=== PATIENT | male | born 1960 | race Caucasian/White ===

== ENCOUNTER 2021-04-26 09:56 | Inpatient (IN) ==
[2021-04-26] MEDS ORDERED: Ipratropium/Albuterol Neb 3 ML IH ONE (11:11)
[2021-04-26] MEDS ORDERED: Acetaminophen 325 MG TABLET PO ONE (11:12)
[2021-04-26] MEDS ORDERED: 0.9 % Sodium Chloride 1,000 ML IVC SCH ×2 (11:15→15:00)
[2021-04-26] MEDS ORDERED: 0.9 % Sodium Chloride 1,000 ML ONE (11:20)
[2021-04-26 11:41] LABS: Hematocrit 48.9 % (37.5-50.1); Hemoglobin 15.7 g/dL (12.9-16.9); Mean Corpuscular HGB Conc 32.1 g/dL (31.6-35.5); Mean Corpuscular Hemoglobin 29.3 pg (28.0-33.3); Mean Corpuscular Volume 91.4 fL (83.0-100.0); Mean Platelet Volume 10.9 fL (9.4-12.4); Neutrophils # 13.2 K/mcL (1.6-8.9); Platelet Count 272 K/mcL (140-400); Red Blood Count 5.35 M/mcL (4.19-5.50); Red Cell Distribution Width 13.8 % (11.5-14.5); White Blood Count 17.3 K/mcL (4.3-11.1)
[2021-04-26 12:09] LABS: Lymphocytes # 1.4 K/mcL (0.6-4.6); Monocytes # 2.8 K/mcL (0.0-1.3)
[2021-04-26 12:10] LABS: Platelet Estimate Normal (Normal)
[2021-04-26] MEDS ORDERED: 0.9 % Sodium Chloride 1,000 ML IVC ONE (12:18)
[2021-04-26 12:46] LABS: Albumin 3.9 g/dL (3.5-5.7); Albumin/Globulin Ratio 1.2 (1.1-2.2); Bilirubin,Total 1.6 mg/dL (0.3-1.0); Calcium 9.2 mg/dL (8.6-10.3); Globulin 3.3 g/dL (2.4-3.5); Potassium 3.7 mEq/L (3.5-5.1); Total Protein 7.2 g/dL (6.4-8.9); Troponin I 0.15 ng/mL (< 0.04)
[2021-04-26] MEDS ORDERED: cefTRIAXone 1,000 MG in 0.9 % Sodium Chloride Mini Bag 100 ML IVPB ONE (12:46)
[2021-04-26] MEDS ORDERED: Azithromycin 500 MG in 0.9 % Sodium Chloride 250 ML IVPB ONE (12:46)
[2021-04-26] MEDS ORDERED: cefTRIAXone 1,000 MG in Water for inj. (sterile) 10 ML IVP ONE (14:00)
[2021-04-26 14:23] LABS: Bacteria,Urine Few per hpf (None-Few); Bilirubin,Urine Negative (Negative); Blood,Urine Large (Negative); Clarity,Urine Turbid (Clear); Color,Urine Orange (Yellow); Glucose,Urine (UA) 50 mg/dL (Normal); Ketones,Urine Trace mg/dL (Negative); Leukocyte Esterase,Urine Negative (Negative); Mucus,Urine Few per lpf (None-Few); Nitrite,Urine Negative (Negative); Protein,Urine 200 mg/dL (Neg-Trace); RBC,Urine 0-3 per hpf (0-3); Specific Gravity,Urine 1.029 (1.010-1.025); Squamous Epithelial Cell,Urine Few per hpf (None-Few)
[2021-04-26] MEDS ORDERED: Naloxone 0.4 MG/ML INJ IVP PRN (14:45)
[2021-04-26] MEDS ORDERED: Ondansetron 4 MG/2 ML VIAL IVP PRN (14:45)
[2021-04-26] MEDS ORDERED: GuaiFENesin Liq 200 MG/10 ML UDC PO PRN (14:46)
[2021-04-26] MEDS ORDERED: Perflutren Lipid Microsphere 1.3 ML in 0.9 % Sodium Chloride 8.7 ML IVP PRN (14:59)
[2021-04-26] MEDS: Ipratropium/Albuterol Neb 3 ML IH SCH ×3 (15:54→23:40)
[2021-04-26] MEDS: 0.9 % Sodium Chloride 1,000 ML IVC SCH ×2 (17:02→23:00)
[2021-04-26 17:39] LABS: Troponin I 0.05 ng/mL (< 0.04)
[2021-04-26] MEDS ORDERED: *HR* Heparin 5,000 UNIT/ML VIAL SQ SCH (18:00)
[2021-04-26 18:25] LABS: Estimated Average Glucose 114 mg/dl; Hemoglobin A1C 5.6 %
[2021-04-26] MEDS: Budesonide/Formoterol 160/4.5 1 PUFF INH IH SCH (20:05)
[2021-04-26] MEDS: MethylPREDNISolone 40 MG/ML VIAL IVP SCH (21:11)
[2021-04-26] MEDS: Nicotine 14 MG PATCH.TD24 TD SCH (21:12)
[2021-04-27] MEDS: Ipratropium/Albuterol Neb 3 ML IH SCH ×6 (03:26→23:58)
[2021-04-27 03:27] LABS: Hematocrit 46.2 % (37.5-50.1); Hemoglobin 15.1 g/dL (12.9-16.9); Mean Corpuscular HGB Conc 32.7 g/dL (31.6-35.5); Mean Corpuscular Hemoglobin 30.3 pg (28.0-33.3); Mean Corpuscular Volume 92.6 fL (83.0-100.0); Mean Platelet Volume 11.3 fL (9.4-12.4); Nucleated Red Blood Cells 0.2 /100 WBC (0); Platelet Count 278 K/mcL (140-400); Red Blood Count 4.99 M/mcL (4.19-5.50); Red Cell Distribution Width 14.1 % (11.5-14.5); White Blood Count 13.2 K/mcL (4.3-11.1)
[2021-04-27 03:33] LABS: BUN/Creatinine Ratio 28 (6-26); Blood Urea Nitrogen 37 mg/dL (8-23); Calcium 8.5 mg/dL (8.6-10.3); Carbon Dioxide 21 mEq/L (23-29); Chloride 107 mEq/L (98-107); Glucose 221 mg/dL (70-105); Magnesium 2.6 mg/dL (1.6-2.6); Osmolality,Calculated 303 (280-300); Potassium 4.1 mEq/L (3.5-5.1); Sodium 139 mEq/L (136-145); eGFR For African Americans > 60 (> 60); eGFR For Non-African Americans 56 (> 60)
[2021-04-27] MEDS ORDERED: *HR* Heparin 5,000 UNIT/ML VIAL IVP PRN ×2 (03:53)
[2021-04-27] MEDS ORDERED: Heparin 25,000UNIT/250ML 1/2NS 25,000 UNIT/250 ML IV.SOLN IVC SCH (04:00)
[2021-04-27] MEDS ORDERED: *HR* Metoprolol 5 MG/5 ML VIAL IVP ONE (04:33)
[2021-04-27 04:57] LABS: ABG Base Excess -9 mEq/L (-2 to 3); ABG HCO3 27 mEq/L (21-27); ABG Oxygen Saturation 97 % (95-98); ABG PCO2 112 mmHg (35-45); ABG PH 6.99 pH Units (7.32-7.45); ABG PO2 139 mmHg (85-104); ABG TCO2 30 mEq/L (20-26); Blood Gas Modality AVAPS; Blood Gas VT 500 cc
[2021-04-27] MEDS ORDERED: *HR* Midazolam HCl 2 MG/2 ML VIAL IVP ONE (06:19)
[2021-04-27] MEDS ORDERED: Artificial Tears SOLN 15 ML BOTTLE BOTH EYES PRN (06:24)
[2021-04-27] MEDS: Midazolam HCl 50 MG/100 ML IV.SOLN IVC SCH (06:55)
[2021-04-27] MEDS: FentaNYL (PF) 1,000 MCG/100 ML IV.SOLN IVC SCH ×2 (06:56→20:07)
[2021-04-27 08:10] LABS: Lymphocytes # 1.1 K/mcL (0.6-4.6); Monocytes # 3.4 K/mcL (0.0-1.3); Neutrophils # 8.7 K/mcL (1.6-8.9); Platelet Estimate Normal (Normal)
[2021-04-27] MEDS: Budesonide/Formoterol 160/4.5 1 PUFF INH IH SCH ×2 (08:23→20:13)
[2021-04-27 08:29] LABS: Hematocrit 45.2 % (37.5-50.1); Hemoglobin 14.4 g/dL (12.9-16.9); Mean Corpuscular HGB Conc 31.9 g/dL (31.6-35.5); Mean Corpuscular Hemoglobin 30.4 pg (28.0-33.3); Mean Corpuscular Volume 95.6 fL (83.0-100.0); Mean Platelet Volume 11.3 fL (9.4-12.4); Platelet Count 259 K/mcL (140-400); Red Blood Count 4.73 M/mcL (4.19-5.50); Red Cell Distribution Width 14.4 % (11.5-14.5); White Blood Count 11.9 K/mcL (4.3-11.1)
[2021-04-27 08:36] LABS: Heparin anti-factor XA UFH < 0.04 IU/mL (0.30-0.70)
[2021-04-27 08:37] LABS: INR 1.2; Prothrombin Time 13.5 Seconds (9.4-12.1)
[2021-04-27] MEDS ORDERED: cefTRIAXone 1,000 MG in Water for inj. (sterile) 10 ML IVP SCH (09:00)
[2021-04-27 09:03] LABS: ABG Base Excess -6 mEq/L (-2 to 3); ABG HCO3 27 mEq/L (21-27); ABG Oxygen Saturation 100 % (95-98); ABG PCO2 95 mmHg (35-45); ABG PH 7.07 pH Units (7.32-7.45); ABG PO2 250 mmHg (85-104); ABG TCO2 30 mEq/L (20-26); Blood Gas Modality ASSIST CONTROL; Blood Gas VT 500 cc
[2021-04-27 10:24] LABS: Acinetobacter baumannii by PCR Not Detected (Not Detect); Enterobacteriaceae by PCR Not Detected (Not Detect); Enterococcus by PCR Not Detected (Not Detect); Staphylococcus aureus by PCR DETECTED (Not Detect); Streptococcus agalactiae(B)PCR Not Detected (Not Detect); Streptococcus by PCR Not Detected (Not Detect); Streptococcus pneumoniae PCR Not Detected (Not Detect); Streptococcus pyogenes (A) PCR Not Detected (Not Detect); mecA Methicillin-Resist Gene DETECTED (Not Detect)
[2021-04-27 10:25] LABS: Candida albicans by PCR Not Detected (Not Detect); Candida glabrata by PCR Not Detected (Not Detect); Candida krusei by PCR Not Detected (Not Detect); Candida parapsilosis by PCR Not Detected (Not Detect); Candida tropicalis by PCR Not Detected (Not Detect); Enterobacter cloacae Cmplx PCR Not Detected (Not Detect); Escherichia coli by PCR Not Detected (Not Detect); Klebsiella oxytoca by PCR Not Detected (Not Detect); Klebsiella pneumoniae by PCR Not Detected (Not Detect); Proteus by PCR Not Detected (Not Detect); Pseudomonas aeruginosa by PCR Not Detected (Not Detect); Serratia marcescens by PCR Not Detected (Not Detect)
[2021-04-27] MEDS: MethylPREDNISolone 40 MG/ML VIAL IVP SCH ×2 (10:28→22:18)
[2021-04-27] MEDS: Artificial Tears SOLN 15 ML BOTTLE BOTH EYES SCH ×4 (10:28→20:06)
[2021-04-27] MEDS: Chlorhexidine Rinse 15 ML MOUTHWASH MM SCH ×2 (10:29→20:06)
[2021-04-27] MEDS: Nicotine 14 MG PATCH.TD24 TD SCH (10:29)
[2021-04-27] MEDS: Norepinephrine 4 MG/254 ML IV.SOLN IVC SCH ×2 (10:29→14:09)
[2021-04-27] MEDS: Albumin 25% 25gram/100mL 25 GM/100 ML IV.SOLN IVC SCH ×2 (14:08→16:38)
[2021-04-27] MEDS ORDERED: Azithromycin 500 MG in 0.9 % Sodium Chloride 250 ML IVPB SCH (15:00)
[2021-04-27] MEDS: Aspirin 81 MG TAB.CHEW PO SCH (15:12)
[2021-04-27 16:08] LABS: ABG Base Excess -4 mEq/L (-2 to 3); ABG HCO3 27 mEq/L (21-27); ABG Oxygen Saturation 99 % (95-98); ABG PCO2 74 mmHg (35-45); ABG PH 7.17 pH Units (7.32-7.45); ABG PO2 172 mmHg (85-104); ABG TCO2 29 mEq/L (20-26); Blood Gas Modality ASSIST CONTROL; Blood Gas VT 500 cc
[2021-04-27] MEDS: Cefepime HCl 2,000 MG in 0.9 % Sodium Chloride Mini Bag 100 ML IVPB SCH (16:39)
[2021-04-28] MEDS: Artificial Tears SOLN 15 ML BOTTLE BOTH EYES SCH ×7 (00:24→23:44)
[2021-04-28] MEDS: Cefepime HCl 2,000 MG in 0.9 % Sodium Chloride Mini Bag 100 ML IVPB SCH ×2 (00:24→09:13)
[2021-04-28] MEDS: Ipratropium/Albuterol Neb 3 ML IH SCH ×6 (03:47→22:57)
[2021-04-28 04:35] LABS: ABG Base Excess -6 mEq/L (-2 to 3); ABG HCO3 23 mEq/L (21-27); ABG Oxygen Saturation 100 % (95-98); ABG PCO2 55 mmHg (35-45); ABG PH 7.22 pH Units (7.32-7.45); ABG PO2 329 mmHg (85-104); ABG TCO2 24 mEq/L (20-26); Blood Gas VT 500 cc
[2021-04-28 05:13] LABS: Basophils # 0.1 K/mcL (0.0-0.2); Basophils % 0.9 %; Eosinophils % 0.1 %; Hematocrit 33.4 % (37.5-50.1); Immature Granulocytes % 2.9 % (0-4); Lymphocytes # 0.6 K/mcL (0.6-4.6); Mean Corpuscular HGB Conc 31.7 g/dL (31.6-35.5); Mean Corpuscular Hemoglobin 29.9 pg (28.0-33.3); Mean Corpuscular Volume 94.4 fL (83.0-100.0); Mean Platelet Volume 11.6 fL (9.4-12.4); Monocytes # 1.3 K/mcL (0.0-1.3); Monocytes % 10.6 %; Platelet Count 150 K/mcL (140-400); Red Blood Count 3.54 M/mcL (4.19-5.50); Red Cell Distribution Width 14.6 % (11.5-14.5); Segmented Neutrophils % 80.5 %; White Blood Count 12.1 K/mcL (4.3-11.1)
[2021-04-28 05:22] LABS: Albumin 3.3 g/dL (3.5-5.7); Albumin/Globulin Ratio 1.3 (1.1-2.2); Bilirubin,Total 0.6 mg/dL (0.3-1.0); Calcium 7.7 mg/dL (8.6-10.3); Globulin 2.5 g/dL (2.4-3.5); Potassium 4.2 mEq/L (3.5-5.1); Total Protein 5.8 g/dL (6.4-8.9)
[2021-04-28 05:24] LABS: Hemoglobin 10.6 g/dL (12.9-16.9); Neutrophils # 9.7 K/mcL (1.6-8.9)
[2021-04-28 05:50] LABS: Platelet Estimate Normal (Normal)
[2021-04-28] MEDS: Midazolam HCl 50 MG/100 ML IV.SOLN IVC SCH ×2 (05:50→17:51)
[2021-04-28] MEDS: Budesonide/Formoterol 160/4.5 1 PUFF INH IH SCH ×2 (07:41→20:28)
[2021-04-28] MEDS ORDERED: Vancomycin 1 EACH in 0.9 % Sodium Chloride 250 ML IVPB PRN (08:30)
[2021-04-28] MEDS: Chlorhexidine Rinse 15 ML MOUTHWASH MM SCH ×2 (09:11→20:07)
[2021-04-28] MEDS: MethylPREDNISolone 40 MG/ML VIAL IVP SCH ×2 (09:12→23:40)
[2021-04-28] MEDS: Aspirin 81 MG TAB.CHEW PO SCH (09:12)
[2021-04-28] MEDS: Nicotine 14 MG PATCH.TD24 TD SCH (09:13)
[2021-04-28] MEDS: 0.9 % Sodium Chloride 1,000 ML IVC SCH ×2 (10:20→17:54)
[2021-04-28] MEDS: Norepinephrine 4 MG/254 ML IV.SOLN IVC SCH ×3 (10:21→19:51)
[2021-04-28 10:31] LABS: Bacteria,Urine Few per hpf (None-Few); Bilirubin,Urine Negative (Negative); Blood,Urine Large (Negative); Clarity,Urine Turbid (Clear); Color,Urine Yellow (Yellow); Glucose,Urine (UA) 200 mg/dL (Normal); Ketones,Urine 10 mg/dL (Negative); Leukocyte Esterase,Urine Negative (Negative); Mucus,Urine Few per lpf (None-Few); Nitrite,Urine Negative (Negative); PH,Urine 5.5 pH Units (5.0-8.0); Protein,Urine 100 mg/dL (Neg-Trace); RBC,Urine 50-100 per hpf (0-3); Specific Gravity,Urine 1.026 (1.010-1.025); Urobilinogen,Urine Normal (Normal); WBC,Urine 0-3 per hpf (0-3)
[2021-04-28 10:48] LABS: Sodium, Urine 28.5 mEq/L
[2021-04-28 11:14] LABS: Protein/Creatinine Ratio,Urine 0.83 mg/mg (0.00-0.20)
[2021-04-28] MEDS: FentaNYL (PF) 1,000 MCG/100 ML IV.SOLN IVC SCH (14:12)
[2021-04-28 15:42] LABS: Hematocrit 30.6 % (37.5-50.1); Hemoglobin 9.7 g/dL (12.9-16.9)
[2021-04-28 15:56] LABS: Complement C3 94 mg/dL (87-200)
[2021-04-28 16:02] LABS: Creatine Kinase 1728 Units/L (30-223)
[2021-04-28 16:08] LABS: Hepatitis B Surface Antigen Nonreactive (Nonreactive)
[2021-04-28 16:37] LABS: Hepatitis C Virus Antibody Nonreactive (Nonreactive)
[2021-04-28 16:38] LABS: Hepatitis B Core IgM Nonreactive (Nonreactive)
[2021-04-28 16:40] LABS: Hepatitis A Antibody IgM Nonreactive (Nonreactive)
[2021-04-28] MEDS: Pantoprazole 40 MG VIAL IVP SCH (17:02)
[2021-04-28] MEDS: *HR* Heparin 5,000 UNIT/ML VIAL SQ SCH (17:02)
[2021-04-28 21:44] LABS: Hematocrit 30.5 % (37.5-50.1); Hemoglobin 9.7 g/dL (12.9-16.9)
[2021-04-28] MEDS ORDERED: Acetaminophen IV 500 MG/50 ML BAG IVPB ONE (22:48)
[2021-04-29] MEDS: 0.9 % Sodium Chloride 1,000 ML IVC SCH (02:00)
[2021-04-29] MEDS: FentaNYL (PF) 1,000 MCG/100 ML IV.SOLN IVC SCH ×2 (03:09→14:35)
[2021-04-29 03:37] LABS: Vancomycin,Random 18 mcg/mL
[2021-04-29] MEDS: Artificial Tears SOLN 15 ML BOTTLE BOTH EYES SCH ×3 (04:04→11:15)
[2021-04-29] MEDS: Ipratropium/Albuterol Neb 3 ML IH SCH ×3 (04:29→11:59)
[2021-04-29 04:33] LABS: Basophils # 0.1 K/mcL (0.0-0.2); Basophils % 0.9 %; Hematocrit 30.9 % (37.5-50.1); Hemoglobin 9.9 g/dL (12.9-16.9); Immature Granulocytes % 2.4 % (0-4); Lymphocytes # 0.3 K/mcL (0.6-4.6); Lymphocytes % 2.2 %; Mean Corpuscular Volume 93.6 fL (83.0-100.0); Monocytes # 0.9 K/mcL (0.0-1.3); Monocytes % 6.2 %; Neutrophils # 13.1 K/mcL (1.6-8.9); Nucleated Red Blood Cells 0.2 /100 WBC (0); Platelet Count 165 K/mcL (140-400); Segmented Neutrophils % 88.3 %; White Blood Count 14.8 K/mcL (4.3-11.1)
[2021-04-29 04:34] LABS: Calcium 7.1 mg/dL (8.6-10.3); Potassium 4.1 mEq/L (3.5-5.1)
[2021-04-29 04:52] LABS: Troponin I 0.19 ng/mL (< 0.04)
[2021-04-29 05:09] LABS: ABG Base Excess -8 mEq/L (-2 to 3); ABG HCO3 19 mEq/L (21-27); ABG Oxygen Saturation 89 % (95-98); ABG PCO2 41 mmHg (35-45); ABG PH 7.27 pH Units (7.32-7.45); ABG PO2 64 mmHg (85-104); ABG TCO2 20 mEq/L (20-26); Blood Gas VT 500 cc
[2021-04-29] MEDS: Norepinephrine 4 MG/254 ML IV.SOLN IVC SCH ×2 (05:14→09:03)
[2021-04-29] MEDS: Midazolam HCl 50 MG/100 ML IV.SOLN IVC SCH (05:39)
[2021-04-29] MEDS: *HR* Heparin 5,000 UNIT/ML VIAL SQ SCH (06:10)
[2021-04-29] MEDS: Pantoprazole 40 MG VIAL IVP SCH (06:10)
[2021-04-29 06:13] LABS: Platelet Estimate Normal (Normal)
[2021-04-29] MEDS: Budesonide/Formoterol 160/4.5 1 PUFF INH IH SCH (07:50)
[2021-04-29] MEDS ORDERED: Cefepime HCl 2,000 MG in 0.9 % Sodium Chloride Mini Bag 100 ML IVPB SCH (09:00)
[2021-04-29] MEDS: Aspirin 81 MG TAB.CHEW PO SCH (09:07)
[2021-04-29] MEDS: MethylPREDNISolone 40 MG/ML VIAL IVP SCH (09:41)
[2021-04-29] MEDS: Chlorhexidine Rinse 15 ML MOUTHWASH MM SCH (09:43)
[2021-04-29] MEDS: Nicotine 14 MG PATCH.TD24 TD SCH (10:47)
[2021-04-29] MEDS ORDERED: *HR* FentaNYL (PF) 100 MCG/2 ML VIAL IVP PRN (13:12)
[2021-04-29] MEDS ORDERED: Haloperidol Lactate 5 MG/ML VIAL IVP PRN (13:12)
[2021-04-29] MEDS ORDERED: *HR* LORazepam 2 MG/ML VIAL IVP PRN (13:13)
[2021-04-29] MEDS ORDERED: Atropine 1% Opth Drops 100 DROP/5 ML BOTTLE SL PRN (13:13)
[2021-05-01 15:50] LABS: ANA IgG by ELISA NONE DETECTED (None Detected); Serine Protease-3 Antibody 0 AU/mL (0-19)
== END 2021-04-29 15:57 | disposition expired | DRG 871 ==
LOC: EMEROOARM 09:56 → 3BNU 09:56 → 2NNU 04-27 06:41
PROVIDERS: ADMIT General Practice; ATTEND General Practice